=== PATIENT | male | born 1960 | race Caucasian/White ===

== ENCOUNTER 2020-11-28 05:55 | Inpatient (IN) | payer OTHER ==
[~2020-11-28] VITALS: Ht 167.6 cm; Wt 43.1 kg
[2020-11-28 06:15] LABS: Calcium, Ionized (POC) 1.29 mmol/L (1.10-1.46); Chloride (POC) 94 mmol/L (98-108); Creatinine (POC) 0.7 mg/dL (0.8-1.3); Glucose (ISTAT POC) 165 mg/dL (70-99); Hemoglobin (POC) 12.2 g/dL (13.5-17.5); Potassium (POC) 3.6 mmol/L (3.5-5.5); Sodium (POC) 132 mmol/L (135-148); Total CO2 (POC) 26 mmol/L (21-32)
[2020-11-28 06:21] LABS: BASOPHILS ABSOLUTE AUTO 0.04 K/mm3 (0.00-0.23); BASOPHILS PERCENT AUTO 0 % (0-2); EOSINOPHILS ABSOLUTE AUTO 0.08 K/mm3 (0.00-0.68); EOSINOPHILS PERCENT AUTO 1 % (0-6); Hematocrit 34.5 % (37.0-53.0); Hemoglobin 11.6 g/dL (13.5-17.5); IMMATURE GRAN ABSOLUTE AUTO 0.05 K/mm3 (0.00-0.10); IMMATURE GRAN PERCENT AUTO 1 % (0-1); LYMPHOCYTES ABSOLUTE AUTO 0.66 K/mm3 (0.84-5.20); LYMPHOCYTES PERCENT AUTO 7 % (21-46); MONOCYTES ABSOLUTE AUTO 0.62 K/mm3 (0.16-1.47); MONOCYTES PERCENT AUTO 7 % (4-13); Mean Corpuscular HGB 33.8 pg (26.0-34.0); Mean Corpuscular HGB Conc 33.6 g/dL (31.5-36.5); Mean Corpuscular Volume 101 fL (80-100); Mean Platelet Volume 10.6 fL (9.1-12.4); NEUTROPHILS PERCENT AUTO 85 % (41-73); Platelet Count 221 K/mm3 (150-400); RDW Coefficient Variation 12.9 % (11.7-14.2); RDW Standard Deviation 47.9 fL (35.1-46.3); Red Blood Cell Count 3.43 M/mm3 (4.30-5.90); White Blood Cell Count 9.45 K/mm3 (4.00-11.30)
[2020-11-28 06:54] LABS: Ethanol (Alcohol), Blood, Med <3 mg/dL; Troponin I <0.015 ng/mL (0.000-0.040)
[2020-11-28 06:55] LABS: Alanine Aminotransfer (ALT/SGP 13 U/L (12-78); Albumin, Blood 2.5 g/dL (3.4-5.0); Albumin/Globulin Ratio 0.6 (0.8-1.8); Alk Phos 124 U/L (50-136); Anion Gap 10 mmol/L (6-16); Aspartate Aminotrans (AST/SGOT 18 U/L (12-37); Bilirubin, Total 0.9 mg/dL (0.1-1.0); Blood Urea Nitrogen 12 mg/dL (8-24); Bun/Creatinine Ratio 15.6 (12.0-20.0); CO2, Blood 25 mmol/L (21-32); Calcium, Blood 9.2 mg/dL (8.5-10.1); Chloride, Blood 97 mmol/L (98-108); Creatinine, Blood 0.77 mg/dL (0.60-1.20); Globulin, Blood 4.3 g/dL (2.2-4.0); Glomerular Filtration Rate >60 (60-); Glucose, Blood 156 mg/dL (70-99); Potassium, Blood 3.6 mmol/L (3.5-5.5); Sodium, Blood 132 mmol/L (136-145); Total Protein, Blood 6.8 g/dL (6.4-8.2)
[2020-11-28 07:42] LABS: SARS-Cov-2 (COVID-19) PCR, MMC NEGATIVE (NEGATIVE)
[2020-11-28 08:57] LABS: Base Excess Venous -5.8 mmol/L; Bicarbonate Venous 20.3 mmol/L (24.0-30.0); PCO2 Venous 33.1 mmHg (38-42); PO2 Venous 184 mmHg (38-42); pH Blood Venous 7.38 (7.34-7.37)
[2020-11-28 09:46] LABS: Source, Urine Catheter
[2020-11-28 09:56] LABS: Appearance, Urine Clear (Clear); Bilirubin, Urine Neg (Neg); Blood, Urine Neg (Neg); Color, Urine Yellow (P-Yellow); Glucose Qualitative, Urine Neg (Neg); Ketones, Urine Neg (Neg); Leukocyte Esterase, Urine Neg (Neg); Nitrite, Urine Neg (Neg); Protein, Urine 2+ (Neg); Urobilinogen, Urine 3+ (Normal)
[2020-11-28 10:07] LABS: Red Blood Cells, Urine 0-2 /hpf (0-2)
[2020-11-28 10:08] LABS: Bacteria Few /hpf; Squamous Epithelial Cells Few /hpf (Few)
[2020-11-28 10:09] LABS: Calcium Oxalate Crystals Few /hpf
[2020-11-28 10:13] LABS: U Cannabinoids Screen DETECTED
[2020-11-28 10:14] LABS: U Amphetamine Screen Not Detected; U Barbituate Screen Not Detected; U Benzodiazapine Screen Not Detected; U Buprenorphine Screen Not Detected; U Cocaine Screen Not Detected; U Methadone Screen DETECTED; U Methamphetamine Screen Not Detected; U Opiates Screen Not Detected; U Oxycodone Screen Not Detected; U Phencyclidine Screen Not Detected; U Propoxyphene Screen Not Detected
--- NOTE | 2020-11-28 10:37 | NUR ---
ED Palliative Care Consult Pt to the ED with ALOC and is currently intubated. Spoke with Dr Kauffman and discussed case. CT results shows significant brain todd. Dr Kauffman has spoken with Pt's Oncologist Dr Lopes who reports comfort care should be considered. Dr Kauffman is in agreement with plan of care. Spoke with Pt's friend Joan who reports Pt suffered the loss of his only living relative, his brother earlier this month. Joan reports Pt was to assist with her care but over the last couple of weeks she has been caring for him. Joan is in agreement that comfort care and allowing Pt to pass in a comfortable mannor is in Pt's best interest. Called and spoke with Bimal Barber from [employer]. Bimal is out of town today and will in tomorrow to place his note. Bimal reports if no advanced directive or appointed decision maker is documented and 2 physicians are in agreement then comfort care is appropriate. Spoke with Dr Russell who is also in agreement. This RN will place comfort care orders once admitting orders are in place per V/O from Dr Russell. Palliative Care will remain available for symptom management.
--- NOTE | 2020-11-28 11:23 | NUR ---
Multiple visits this AM. Placed comfort care, comfort care order set, and extubate orders per V/O from Dr Kauffman. Dr uRssell will admit Pt. Pt extubated and ED RN Frances medicates for comfort. Pt appears comfortable at this time. Spoke with Friend Joan who will come see Pt to say her Goodbyes. She reports she can not afford costs after paying for Pt's brother's costs. She reports [facility] is where Pt's brother went. Offered therapeutic listening and validated concerns. Palliative Care will remain available for supportive visits and symptom management.
--- NOTE | 2020-11-28 11:50 | NUR ---
Call back rounding - Spoke with palliative care RN who requested visit. Pt was non-responsive. PC introduced his person and provided affirming remarks of care and words of comfort. Extended a supplication on the pt's behalf. No family identified.
--- NOTE | 2020-11-28 13:54 | NUR ---
Comfort Care Visit Pt's friend Joan has arrived. Pt resting on gurney upon arrival. Pt resting with his eyes closed with no S/S of distress at this time. Pt appears comfortable at this time. Offered supportive visit for Joan who reports no concerns at this time. Spoke with ED RN Halie and discussed case. No concerns reported at this time. Palliative Care will remain available.
--- NOTE | 2020-11-28 18:24 | NUR ---
PT IS RESTING IN BED MAKING NO COMPLAINTS. BODY RELAXED, NOT ABLE TO VERBALIZE NEEDS. STAFF WILL CONTINUE TO MONITOR.
--- NOTE | 2020-11-29 05:57 | NUR ---
SHIFT SUMMARY PATIENT RESPONSIVE TO PAINFUL STIMULI. MEDICATED PER EMAR FOR PAIN. IV PATENT AND FLUSHED. BED IN LOWEST POSITION WITH WHEELS LOCKED AND ALARM ON. CALL LIGHT WITHIN REACH. REPORT GIVEN TO ONCOMING RN.
--- NOTE | 2020-11-29 07:15 | NUR ---
Late entry or ethics consult order facilitated on 11/28/20. It was reported that the principal, who was decompensating and not likely to benefit from aggressive measures of support, had no advance care planning instrument on file, no proxy, and no assigned DHS worker. Based on ORS 127.635, and our crsis standards of care, I recommended no-intubation and a hospice election. I further suggested that the principals terminal condition needed verified via two provider attestation. Thank you for this consult. Bimal Barber ThD
--- NOTE | 2020-11-29 17:46 | NUR ---
Pal Care case conference and visit. Contacted by RN with report that pt had pulled out his one remaining IV. She requeted per that I change comfort care medications to other routes and enter order for no restart of IV. I confirmed VO with and entered VO to d/c'd all IV medications, no restart of IV and converted comfort care medications to topical, PO, SL or WV route. Comfort care visit made later in the day. Pt was sleeping at that time. Update on current status and s/s noted received from RN earlier. I did not disturb pt. Pal Care will cont to follow.
--- NOTE | 2020-11-29 18:36 | NUR ---
PT RESTING IN BED, MAKING NO COMPLIANTS. TREATED ONCE THIS SHIFT FOR PAIN AND AIR HUNGER.
--- NOTE | 2020-11-29 20:00 | NUR ---
COMFORT CARE CONTINUES TO STATE PAINFUL T/O; MEDICATED BY SOLUTIONS OPERATOR. FREELY MOVING IN BED. REALLY WET HARSH COUGH. GIVEN FLUIDS BY SPOON. NO OTHER NEEDS AT THIS TIME. BED IN LOWEST; ALARM ON. CALL LIGHT WITHIN REACH. CONTINUE WITH CURRENT PLAN OF CARE
--- NOTE | 2020-11-29 22:00 | NUR ---
COMFORT CARE NO ACUTE NEEDS AT THIS TIME. BED REMAINS IN LOWEST POSITION; ALARM ON. CALL LIGHT WITHIN REACH. CONTINUE WITH CURRENT PLAN OF CARE.
--- NOTE | 2020-11-30 | NUR ---
COMFORT CARE APPEARS TO BE RESTING WITHOUT AND ACUTE NEEDS AT THIS TIME. BED REMAINS IN LOWEST POSITION; ALARM ON. CALL LIGHT AND BELONGINGS WITHIN REACH. CONTINUE WITH CURRENT PLAN OF CARE.
--- NOTE | 2020-11-30 02:00 | NUR ---
COMFORT CARE APPEARS TO BE RESTING WITHOUT ANY ACUTE NEEDS AT THIS TIME. BED IN LOWEST POSITION; ALARM ON. CALL LIGHT WITHIN REACH. CONTINUE WITH CURRENT PLAN OF CARE.
--- NOTE | 2020-11-30 04:00 | NUR ---
COMFORT CARE C/O PAIN/DISCOMFORT; MEDICATED PER EMAR. MOUTH DRY, BUT DOES NOT TOLERATE ORAL CARE. NO OTHER ACUTE CHANGES. BED REMAINS IN LOWEST POSITION; ALARM ON. CALL LIGHT WITHIN REACH. CONTINUE WITH CURRENT PLAN OF CARE.
--- NOTE | 2020-11-30 05:07 | NUR ---
SHIFT SUMMARY ALERT. STARES OFF. MUMBLES NEEDS. VERY DRY MOUTH; ATTEMPTED ORAL CARE, NOT TOLERABLE. MOVES FREELY IN THE BED. APPEARED TO REST MUCH OF THE NIGHT. MEDICATED PER EMAR FOR PAIN X2. NO ACUTE CHANGES NOTED. DUGAN SECURED AND DRAINING TO GRAVITY. BED REMAINS IN LOWEST POSITION; ALARM ON. CALL LIGHT AND BELONGINGS WITHIN REACH. CONTINUE WITH CURRENT PLAN OF CARE. REPORT TO ONCOMING RN.
--- NOTE | 2020-11-30 06:00 | NUR ---
COMFORT CARE APPEARS TO BE RESTING. NO ACUTE NEEDS AT THIS TIME. BED REMAINS IN LOWEST; ALARM ON. CALL LIGHT WITHIN REACH; DOES NOT UTILIZE. CONTINUE WITH CURRENT PLAN OF CARE.
--- NOTE | 2020-11-30 08:44 | NUR ---
PT RESTING WITH EYES SHUT. RR E/U. PAINAD IS 0/10.
--- NOTE | 2020-11-30 11:23 | NUR ---
Comfort Care visit and case conference: Pt sound asleep. Resp even and unlabored. Dany is not demonstrating any nonverbal indicators of pain or distress at this time. Zuniga cath drainage bag with very dk gissel urine noted. He is still able to reposition himself in bed per notes.
--- NOTE | 2020-11-30 11:30 | NUR ---
PT RESTING W/EYES SHUT, RR E/U. PT SELF REPOSITIONED.
--- NOTE | 2020-11-30 12:33 | NUR ---
OFFERED JELLO PER MD REQUEST DUE TO PT REQUESTING FOOD. PT TOLERATED 3 BITES OF JELLO BEFORE REFUSING ANYMORE. PT MEDICATED FOR ARANDA PER JUN. PT REPOSITIONED. FEET FLOATED. NO SKIN CONCERNS AT THIS TIME. PT WAS ALERT BUT UNABLE TO SPEAK AUDIBLY. VOICE VERY HOARSE. ONLY MADE OUT A FEW WORDS.
--- NOTE | 2020-11-30 15:57 | NUR ---
Comfort Care Visit Pt sitting up in bed upon arrival. Primary RN Isabella and TEJINDER at bedside. Pt looks dazed and is speaking very softly. Difficult to comprehend Pt's speech. Pt does show signs of pain as evidenced by wencing and jerking when he moves his back. Offered therapeutic voice and reasurrance. Isabella will offer medicatioin for pain. Father Joni arrives and offers prayer. Palliative Care will remain available.
--- NOTE | 2020-11-30 15:57 | NUR ---
PT RESTING W/EYES SHUT. RR E/U. PT REPOSITIONED. NO S/S OF PAIN ANXIETY.
--- NOTE | 2020-11-30 15:58 | NUR ---
PT AWAKE, SITTING UP IN BED UNABLE TO VERBALIZE CONCERNS. VERY HOARSE AND UNCLEAR. PT DID HAVE PAIN WITH POSITIONING. MEDICATED PER JUN. TURPENTINE FARMER CALLED TO GIVE SPIRITUAL CARE. PT REPOSITIONED FOR COMFORT.
--- NOTE | 2020-11-30 19:29 | NUR ---
SHIFT SUMMARY: PT SLEPT MOST OF THE MORNING BUT WAS AWAKE AND ALERT THIS AFTERNOON. UNABLE TO ASSESS ORIENTATION HE WAS DIFFICULT TO UNS=DERSTAND DUE TO HOARSENESS. PT MEDICATED PER JUN FOR PAIN, TOLERATED WELL. NO S/S OF ANXIETY. NO ACUTE CHANGES THIS SHIFT. UNABLE TO TAKE IN FOOD HE WOULD NOT SWALLOW JELLO.
--- NOTE | 2020-11-30 22:52 | NUR ---
RESTING QUIETLY, BUT APPARENT PAIN, MED GIVEN, CALL LIGHT IN REACH
--- NOTE | 2020-11-30 22:53 | NUR ---
RESETING QUIETLY. CALL LIGHT IN REACH
--- NOTE | 2020-11-30 22:53 | NUR ---
RESTING QUIWETLY. TV ON. CALL LIGHT IN REACH
--- NOTE | 2020-12-01 00:52 | NUR ---
RESTING QUIETLY. CALL LIGHT IN REACH
--- NOTE | 2020-12-01 03:38 | NUR ---
MACHINE SETTER SHEET METAL SUMMARY REMAINS ON COMFORT CARE. MEDICATED FOR PAIN AT INTERVALS - SEE MAR FOR DETAILS. CURRENTLY RESTING QUIETLY WITH TV ON. CALL LIGHT IN REACH. DUGAN TO GRAVITY DRAIN. ORAL CARE ENCOURAGED, PT RESISTANT TO IT.
--- NOTE | 2020-12-01 13:16 | NUR ---
PT EXPERIENCING LEONCIO STOKE BREATHING AT THIS TIME. ROXANOL 20 MG GIVEN PER JUN. CC COMPLETED.
--- NOTE | 2020-12-01 13:36 | NUR ---
PATIENT WARM TO TOUCH. FAN PLACED AT BEDSIDE TO COOL PATIENT. ACETAMINOPHEN SUPP TO BE GIVEN.
--- NOTE | 2020-12-01 14:51 | NUR ---
PT GIVEN TYLENOL PER MD ORDER. FAN PLACED AT BEDSIDE.
--- NOTE | 2020-12-01 15:49 | NUR ---
Comfort Care Visit Pt resting in bed with his eyes opened. Pt does not track or respond to verbal stimuli. Offered gentle voice and touch. Pt appears comfortable with no S/S of distress at this time. Pt appears imminent. Palliative Care will remain available.
--- NOTE | 2020-12-01 18:06 | NUR ---
SHIFT SUMMARY: PT ON COMFORT CARE. NON RESPONSIVE AT THIS TIME AND IS ACTIVELY DYING. PT HAD SOME DISCOMFORT WITH LEONCIO STOKE BREATHING. MEDICATIONS GIVEN PER MAR AND PT RESPONDED WELL WITH SIGNS OF COMFORT. PT WARM TO TOUCH. TYLENOL GIVEN.
--- NOTE | 2020-12-01 19:40 | NUR ---
RESTING QUIETLY. CALL LIGHT IN REACH
--- NOTE | 2020-12-01 23:31 | NUR ---
REPOSITOINED. SUCTIONED DUE TO COUGHING - SONGESTION. NOTE LEONCIO STOKING AND SOME KUSHMAL RESPS. CALL LIGHT IN REACH
--- NOTE | 2020-12-01 23:31 | NUR ---
REPOSITIONED. DUGAN DRAINING
--- NOTE | 2020-12-02 02:28 | NUR ---
REPOSITIONED. NO NOTED S/S PAIN
--- NOTE | 2020-12-02 04:11 | NUR ---
REPOSITIONED. SUCTIONED. SOME MOIST BREATHING. EYES OPEN. REASSURANCE GIVEN TO PT WE ARE WITH HIM AND HE IS NOT ALONE. HOB ELEVATED. CALL LIGHT IN [facility]
--- NOTE | 2020-12-02 04:41 | NUR ---
MACHINE FINISHER SUMMARY REMAINS ON COMFORT CARE. SCOP PATCH BEHIND EAR FOR SECRETIONS. BREATH SOUNDS REMAIN WET, SUCTIONED INTERMITTENTLY. RESPS UNEVEN. SOME LEONCIO STOKING AND KUSMAL BREATHING NOTED. CALL LIGHT IN REACH. REPOSITIONED INTERMITTENTLY FOR COMFORT.
--- NOTE | 2020-12-02 08:13 | NUR ---
SEE NOTE: UPON ENTERING ROOM PT RR HAD CEASED. VERIFIED NO HEART RATE, BP, RR OR PULSES. PT APPEARED TO HAVE PASSED PEACEFULLY. POST MORTEM CARE COMPLETED WITH ASSISTANCE FROM NATIONAL GUARD. SEE NOTED 12/02/2020 AT 8:05 AM.
== END 2020-12-02 08:05 | DRG 951 ==
LOC: MEDS → ER 05:55 → MEDS 11:21 → ERHOLD 11:21 → MEDS 16:40
PROVIDERS: Emergency Medicine; ADMIT Family Medicine
PROC: 5A1935Z Respiratory Ventilation, Less than 24 Consecutive Hours (ICD-10-PCS; principal; 2020-11-28)
DX: Z51.5 Encounter for palliative care (principal); J96.90 Respiratory failure, unspecified, unspecified whether with hypoxia or hypercapnia; C79.31 Secondary malignant neoplasm of brain; C90.00 Multiple myeloma not having achieved remission; G93.49 Other encephalopathy; C34.90 Malignant neoplasm of unspecified part of unspecified bronchus or lung; E87.1 Hypo-osmolality and hyponatremia; Z66 Do not resuscitate; Z20.822 Contact with and (suspected) exposure to COVID-19; R11.2 Nausea with vomiting, unspecified; E11.65 Type 2 diabetes mellitus with hyperglycemia; I10 Essential (primary) hypertension; F12.10 Cannabis abuse, uncomplicated; F10.20 Alcohol dependence, uncomplicated; F17.210 Nicotine dependence, cigarettes, uncomplicated; Z79.899 Other long term (current) drug therapy; Z79.4 Long term (current) use of insulin; Z87.11 Personal history of peptic ulcer disease
CPT/HCPCS: 31500; 51702; 70450; 70460; 71045; 71260; 73060; 80047; 80053; 81001; 82803; 83880; 84145; 84443; 84484; 85014; 85025; 93005; 93010; 94002; 96365-59; 96375-59; 96376-59; 99291-25; A9270; G0480; J0295; J1953; J2060; J2270; J2405; J2704; J3010; J3480; J7030; Q9967; U0004